=== PATIENT | female | born 1990 | race Hispanic/Latino ===

== ENCOUNTER 2019-12-07 08:01 | Emergency (ER) | payer SELFPAY ==
[2019-12-07] MEDS ORDERED: KETOROLAC 30 MG/ML INJ ONE (08:39)
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
[2019-12-07 09:10] LABS: Urine Blood 2+ (NEG); Urine Glucose NEGATIVE (NEG); Urine Protein NEGATIVE (NEG); Urine Specific Gravity >1.030 (1.005-1.030); Urine pH 5.5 (5.0-7.0)
[2019-12-07] MEDS ORDERED: LIDOCAINE 1% W/EPI 1:100,000 MDV 20 ML VIAL ONE (09:18)
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
[2019-12-07 10:51] VITALS: O2SAT 100
[2019-12-07 10:52] VITALS: TEMP 98.8
[2019-12-07 10:55] VITALS: BP 123/84
== END 2019-12-07 10:41 | disposition home or self-care (01) ==
LOC: ER 08:01
DX: S00.81XA Abrasion of other part of head, initial encounter (principal); V49.9XXA Car occupant (driver) (passenger) injured in unspecified traffic accident, initial encounter
CPT/HCPCS: 70450; 71260; 72125; 74177; 81003; 81025; 96374; 99284; Q9967